=== PATIENT | male | born 1935 | race Caucasian/White ===

== ENCOUNTER 2018-03-05 04:01 | Emergency (ER) | payer MEDICARE ==
[~2018-03-05] VITALS: Ht 167.6 cm; Wt 112.1 kg
[~2018-03-05 04:01] MED LIST: ALBU2TAB4 PO; ALLO100T PO; ASPI-516 CHEW; ATOR40TA16 PO; COLC1CAP3 PO; FURO40TA PO; GABA300C5 PO; IPRA0.02 NEB; KLOR10TA PO; LEVO100T5 PO; LEVO50TA4 PO; LISI10TA3 PO; METF500T PO; OCUVTAB PO; PACE200T PO; TEST200I12 IM; TRAM50TA PO; TYLE325T PO; VITA1000 PO
[2018-03-05 04:06] VITALS: BP 171/90; PULSE 60; RESP 20; TEMP 98.4; O2SAT 93
[2018-03-05] MEDS ORDERED: SODIUM CHLOR 0.9% 1000 ML INJ 1,000 ML IV SCH (04:28)
[2018-03-05] MEDS ORDERED: SODIUM CHLORIDE 0.9% FLUSH 10 ML FLUSH IV FLUSH PRN (04:30)
[2018-03-05] MEDS ORDERED: ONDANSETRON HCL 4 MG/2 ML VIAL IVP ONE (04:30)
[2018-03-05] MEDS ORDERED: MORPHINE SULFATE 4 MG/ML INJ IV PUSH ONE (04:30)
[2018-03-05 04:47] VITALS: RESP 18; O2SAT 92; O2SAT 94
[2018-03-05 04:51] LABS: AUTOMATED NEUTROPHIL # 4.3 TH/MM3 (1.8-7.7); BASOPHIL # 0.1 TH/MM3 (0-0.2); BASOPHIL % 1.2 % (0.0-2.0); EOSINOPHIL # 0.5 TH/MM3 (0-0.4); EOSINOPHIL % 7.5 % (0.0-4.0); HEMOGLOBIN 13.8 GM/DL (13.0-17.0); LYMPH % 17.5 % (9.0-44.0); LYMPHOCYTE # 1.2 TH/MM3 (1.0-4.8); MEAN CELL VOLUME 110.1 FL (80.0-100.0); MEAN CORPUSCULAR HEMOGLOBIN 36.1 PG (27.0-34.0); MEAN CORPUSCULAR HGB CONC 32.8 % (32.0-36.0); MEAN PLATELET VOLUME 7.9 FL (7.0-11.0); MONO % 8.8 % (0.0-8.0); MONOCYTE # 0.6 TH/MM3 (0-0.9); PLATELET COUNT 167 TH/MM3 (150-450); RED BLOOD COUNT 3.81 MIL/MM3 (4.50-5.90); WHITE BLOOD COUNT 6.7 TH/MM3 (4.0-11.0)
[2018-03-05 04:58] LABS: CHLORIDE 105 MEQ/L (98-107); SODIUM (NA) 141 MEQ/L (136-145)
[2018-03-05 05:02] LABS: ALBUMIN 3.5 GM/DL (3.4-5.0); BICARBONATE 28.4 MEQ/L (21.0-32.0); CALCIUM 9.5 MG/DL (8.5-10.1); GLUCOSE,RANDOM 125 MG/DL (74-106)
[2018-03-05 05:03] LABS: BLOOD UREA NITROGEN 20 MG/DL (7-18)
[2018-03-05 05:05] LABS: ALT (GPT) 23 U/L (12-78); AST (GOT) 25 U/L (15-37); GLOMERULAR FILTRATION RATE 53 ML/MIN (>89)
[2018-03-05 05:07] LABS: TOTAL BILIRUBIN ADULT 0.5 MG/DL (0.2-1.0); TOTAL PROTEIN 6.7 GM/DL (6.4-8.2)
[2018-03-05 05:08] LABS: ALKALINE PHOSPHATASE 91 U/L (45-117)
--- NOTE | 2018-03-05 05:19 | PD ---
HPI Chief Complaint: Abdominal Pain Time Seen by Provider: 04:17 Travel History International Travel<30 days: No Contact w/Intl Traveler<30days: No Traveled to known affect area: No History of Present Illness HPI The patient is an 82-year-old male who comes into the emergency department because of abdominal pain and distention for 2 hours. He does have nausea without vomiting. He states he has not had a bowel movement in 24 hours and his past only a small amount of gas. He denies any fever or diarrhea. He does have a history of atrial fibrillation. The patient has renal insufficiency and cannot take nonsteroidal anti-inflammatory drugs. PFSH Past Medical History Arthritis: Yes Asthma: No Atrial Fibrillation: Yes Autoimmune Disease: No Anxiety: No Depression: No Heart Rhythm Problems: Yes (A-FIB) Cancer: No Cardiovascular Problems: Yes (HTN, high chol, bypass) High Cholesterol: Yes Chemotherapy: No Chest Pain: No Congestive Heart Failure: Yes COPD: Yes Cerebrovascular Accident: Yes (TIA) Diabetes: Yes Patient Takes Glucophage: Yes (03/04/18 0900) Diminished Hearing: Yes Endocrine: No GERD: No Glaucoma: No Genitourinary: Yes (PROSTATE ISSUES; ) Headaches: Yes Hepatitis: No Hiatal Hernia: No Hypertension: Yes Immune Disorder: No Kidney Stones: No Medical other: Yes (HX DIVERTICULTIS; SWELLING IN FEET; GOUT ) Musculoskeletal: Yes (NECK STIFFNESS; bryon rotator cuff issues) Neurologic: No Psychiatric: No Reproductive: No Respiratory: Yes (COPD) Immunizations Current: No Migraines: No Radiation Therapy: No Renal Failure: No Seizures: No Sickle Cell Disease: No Sleep Apnea: No Thyroid Disease: Yes Ulcer: No Tetanus Vaccination: Unknown Influenza Vaccination: Yes PNEUMOCCOCAL Vaccine (Year): 1 Past Surgical History Abdominal Surgery: Yes (COLON RESECTION,UMBILICAL HERNIA REPAIR WITH MESH ) AICD: No Arteriovenous Shunt: No Body Medical Devices: mesh, UMBILICAL AREA Cardiac Surgery: Yes (bypass) Ear Surgery: No Endocrine Surgery: No Eye Surgery: Yes (RIGHT CATARACT EXTRACTION WITH LENS IMPLANT) Genitourinary Surgery: Yes (CIRCUMISION) Gynecologic Surgery: No Insulin Pump: No Joint Replacement: No Oral Surgery: No Pacemaker: No Thoracic Surgery: No Other Surgery: Yes Social History Alcohol Use: Yes ([facility]) Tobacco Use: No (QUIT 1984) Substance Use: No Allergies-Medications (Allergen,Severity, Reaction): Coded Allergies: ibuprofen (Verified Allergy, Severe, kidney reaction, 10/02/17) lovastatin (Verified Allergy, Unknown, 10/02/17) muscle weakness pravastatin (Verified Allergy, Unknown, 10/02/17) muscle weakness Reported Meds & Prescriptions Reported Meds & Active Scripts Active Testosterone Cypionate Inj (Testosterone Cypionate) 200 Mg/Ml Inj 100 Mg IM MO Reported Furosemide 40 Mg Tab 40 Mg PO DAILY Gabapentin 300 Mg Cap 300 Mg PO HS Klor-Con 10 (Potassium Chloride) 10 Meq Tab 10 Meq PO DAILY Lisinopril 10 Mg Tab 10 Mg PO DAILY Metformin (Metformin HCl) 500 Mg Tab 500 Mg PO DAILY With a meal Albuterol (Albuterol Sulfate) 2 Mg Tab 2 Mg PO QID Ipratropium Neb (Ipratropium [place]) 0.5 Mg/2.5 Ml Amp 0.5 Mg NEB Q6HR NEB PRN Ocuvite (Multiple Vitamins W/ Minerals) 1 Tab 1 Tab PO DAILY Vitamin D-1000 (Cholecalciferol) 1,000 Unit Tab 1,000 Units PO DAILY Tylenol (Acetaminophen) 325 Mg Tab 650 Mg PO Q4H PRN Pacerone (Amiodarone HCl) 200 Mg Tab 200 Mg PO DAILY Levothyroxine (Levothyroxine Sodium) 100 Mcg Tab 100 Mcg PO DAILY Fri, Fri. Levothyroxine (Levothyroxine Sodium) 50 Mcg Tab 50 Mcg PO DAILY Mon,T,T,Fri,Sat Colchicine 0.6 Mg Cap 0.6 Mg PO DAILY Atorvastatin (Atorvastatin Calcium) 40 Mg Tab 80 Mg PO HS Allopurinol 100 Mg Tab 300 Mg PO DAILY Review of Systems Except as stated in HPI: all other systems reviewed are Neg Physical Exam Narrative The CBC is essentially normal. The complete metabolic profile shows a BUN of 20 , GFR 53 but is otherwise normal. The lipase is normal. The CT abdomen/pelvis with IV contrast shows cholelithiasis and distended gallbladder without pericholecystic inflammatory changes. Multiple fat-containing anterior abdominal wall hernias in the midline are noted. Prominent left-sided spur galea and hernia containing a loop of bowel but no evidence of bowel dilatation or bowel wall thickening. Also noted is enlarged prostate. Data Data Last Documented VS Vital Signs Date Time Temp Pulse Resp B/P (MAP) Pulse Ox O2 Delivery O2 Flow Rate FiO2 03/05/18 05:45 18 03/05/18 05:44 88 131/83 (99) 96 Nasal Cannula 2.00 03/05/18 04:06 98.4 Orders Orders Complete Blood Count With Diff (03/05/18 04:28) Comprehensive Metabolic Panel (03/05/18 04:28) Lipase (03/05/18 04:28) Urinalysis - C+S If Indicated (03/05/18 04:28) Ct Abd/Pel W Iv Contrast(Rout) (03/05/18 04:28) Iv Access Insert/Monitor (03/05/18 04:28) Ecg Monitoring (03/05/18 04:28) Oximetry (03/05/18 04:28) Morphine Inj (Morphine Inj) (03/05/18 04:30) Ondansetron Inj (Zofran Inj) (03/05/18 04:30) Sodium Chlor 0.9% 1000 Ml Inj (Ns 1000 M (03/05/18 04:28) Sodium Chloride 0.9% Flush (Ns Flush) (03/05/18 04:30) Electrocardiogram (03/05/18 05:14) Iohexol 350 Inj (Omnipaque 350 Inj) (03/05/18 05:38) Labs Laboratory Tests Test 03/05/18 04:40 03/05/18 05:50 White Blood Count 6.7 TH/MM3 Red Blood Count 3.81 MIL/MM3 Hemoglobin 13.8 GM/DL Hematocrit 42.0 % Mean Corpuscular Volume 110.1 FL Mean Corpuscular Hemoglobin 36.1 PG Mean Corpuscular Hemoglobin Concent 32.8 % Red Cell Distribution Width 16.0 % Platelet Count 167 TH/MM3 Mean Platelet Volume 7.9 FL Neutrophils (%) (Auto) 65.0 % Lymphocytes (%) (Auto) 17.5 % Monocytes (%) (Auto) 8.8 % Eosinophils (%) (Auto) 7.5 % Basophils (%) (Auto) 1.2 % Neutrophils # (Auto) 4.3 TH/MM3 Lymphocytes # (Auto) 1.2 TH/MM3 Monocytes # (Auto) 0.6 TH/MM3 Eosinophils # (Auto) 0.5 TH/MM3 Basophils # (Auto) 0.1 TH/MM3 CBC Comment DIFF FINAL Differential Comment Blood Urea Nitrogen 20 MG/DL Creatinine 1.30 MG/DL Random Glucose 125 MG/DL Total Protein 6.7 GM/DL Albumin 3.5 GM/DL Calcium Level 9.5 MG/DL Alkaline Phosphatase 91 U/L Aspartate Amino Transf (AST/SGOT) 25 U/L Alanine Aminotransferase (ALT/SGPT) 23 U/L Total Bilirubin 0.5 MG/DL Sodium Level 141 MEQ/L Potassium Level 4.1 MEQ/L Chloride Level 105 MEQ/L Carbon Dioxide Level 28.4 MEQ/L Anion Gap 8 MEQ/L Estimat Glomerular Filtration Rate 53 ML/MIN Lipase 168 U/L [facility] Medical Decision Making Medical Screen Exam Complete: Yes Emergency Medical Condition: Yes Medical Record Reviewed: Yes Interpretation(s) The EKG shows atrial fibrillation with a response rate of 85. The CBC is normal. The complete metabolic profile shows a BUN of 20, GFR 53 but is otherwise normal. The lipase is normal. The CT abdomen/pelvis with IV contrast shows cholelithiasis and distended gallbladder but no pericholecystic inflammatory changes seen and multiple fat-containing anterior abdominal wall hernias and midline. There is also prominent left-sided spitting galea and hernia containing a loop of bowel. No evidence of bowel dilatation or bowel wall thickening. Also noted is an enlarged prostate. Differential Diagnosis Small bowel obstruction, cholecystitis, cholelithiasis with colic, pancreatitis , dehydration, electrolyte disorder Narrative Course The patient has cholelithiasis with colic. It is now 0 615 and the patient feels normal without any pain or nausea. He will need to follow-up with Dr. Aryan donnelly regarding this. He will be given Percocet 5 for pain and Zofran for nausea. Diagnosis Primary Impression: Cholelithiasis with colic Additional Instructions: Follow-up with Dr. Donnelly as soon as possible. Take the results of the CAT scan and blood work that I gave you to his office. Do not drink alcohol or drive on the Percocet 5. Med/Other Pt SpecificInfo: Prescription(s) given Scripts Ondansetron (Zofran) 4 Mg Tab 4 MG PO Q6HR Y for NAUSEA OR VOMITING, #20 TAB 0 Refills Prov: Winston Robbins MD 03/05/18 Oxycodone-Acetaminophen (Percocet) 5-325 mg Tab 1-2 TAB PO Q4H Y for PAIN, #20 TAB 0 Refills Prov: Winston Robbins MD 03/05/18 Disposition: 01 DISCHARGE HOME Condition: Stable Winston Robbins MD Mar 05, 2018 05:19
[2018-03-05] MEDS ORDERED: IOHEXOL 350 MG/ML 10 ML VIAL (for RAD DIAG) IVCONTRAST ONE (05:38)
[2018-03-05 05:44] VITALS: BP 131/83; PULSE 88; RESP 18; O2SAT 96
[2018-03-05 05:45] VITALS: RESP 18
--- NOTE | 2018-03-05 06:00 | RADRPT ---
EXAM DATE: 03/05/2018 5:39 AM EDT AGE/SEX: 82 years / Male INDICATIONS: Abdominal and back pain. CLINICAL DATA: This is the patient's initial encounter. Patient reports that signs and symptoms have been present for 1 day and indicates a pain score of 7/10. MEDICAL/SURGICAL HISTORY: Diverticulitis. Diabetes mellitus type II. Hypertension. Umbilical hernia. Umbilical hernia repair. Colon resection. ORAL CONTRAST: No oral contrast ingested. RADIATION DOSE: 26.70 CTDI (mGy) ; Patient body habitus COMPARISON: No prior exams available for comparison. TECHNIQUE: Multiple contiguous axial images were obtained through the abdomen and pelvis following b olus infusion of 100 ml Omnipaque 350 (iohexol) nonionic water-soluble contrast as a single exam do se. No oral contrast ingested. Using automated exposure control and adjustment of the mA and/or kV a ccording to patient size, the radiation dose was kept as low as reasonably achievable to obtain optim al diagnostic quality images. FINDINGS: Lower Lungs: Mild bilateral lower lobe atelectasis. Coronary artery calcifications noted. Liver: The liver has a homogeneous density without space-occupying lesion. There is no dilation of th e biliary tree. Gallbladder is distended. Several small calcified gallstones are seen in the dependen t portion of the gallbladder. No pericholecystic inflammatory changes. Spleen: Homogeneous density without enlargement. Pancreas: Unremarkable without mass or calcification. Kidneys: 2.7 cm cyst in the midpole of the right kidney. 2.6 cm cyst at the medial aspect of the mid pole the right kidney. 1 cm cyst in the posterior upper pole of the left kidney. No evidence of hydro nephrosis. Adrenal Glands: Unremarkable. Aorta: Tortuous and calcified aorta. Aortic diameter within normal limits. Bowel/Mesentery: Scattered colonic diverticula. No evidence of acute diverticulitis. Appendix within normal limits. No evidence of bowel dilatation. Surgical clips in the left upper quadrant of the abd omen. Abdominal Wall: Multiple fat-containing anterior abdominal wall hernias in the midline. No bowel inv olvement is seen. Largest measures 4.2 x 1.6 cm. Prominent left-sided spigelian hernia containing a l oop of small bowel. No evidence of bowel wall thickening or dilatation. Retroperitoneum: No evidence of adenopathy in the retrocrural, para-aortic, or deep pelvic regions. Bladder: Contours are smooth. Reproductive Organs: Prostate calcification. Prostate is enlarged measuring 5.1 cm in transverse dim ension. Inguinal: Bony Structures: Degenerative findings of the lumbar spine. Mild osteoarthritic findings of the hips . CONCLUSION: 1. Cholelithiasis and distended gallbladder. No pericholecystic inflammatory changes seen. 2. Multiple fat-containing anterior abdominal wall hernias in the midline. 3. Prominent left-sided spigelian hernia containing a loop of bowel. No evidence of bowel dilatation or bowel wall thickening. 4. Enlarged prostate. Electronically signed by: Raul Da Silva MD 03/05/2018 5:58 AM EDT
[2018-03-05 06:01] LABS: BILIRUBIN, URINE NEG (NEG); BLOOD, URINE NEG (NEG); GLUCOSE,URINE NEG (NEG); KETONE, URINE NEG (NEG); NITRITE,URINE NEG (NEG); URINE COLOR YELLOW (YELLW/STRAW); URINE LEUKOCYTE ESTERASE NEG (NEG)
[2018-03-05 06:16] LABS: WBC, URINE 0-2 /hpf (0-5)
[2018-03-05 06:17] LABS: SQUAMOUS EPITHELIAL CELL URINE 0-5 /hpf (0-5)
[2018-03-05] MEDS ORDERED: PERC5TAB12 PO (06:17)
[2018-03-05] MEDS ORDERED: ZOFR4TAB PO (06:17)
--- NOTE | 2018-03-05 18:20 | EKG ---
Date Performed: 03/05/2018 Time Performed: 05:12:50 PTAGE: 82 years EKG: ATRIAL FIBRILLATION LOW QRS VOLTAGE POSSIBLE ANTERIOR MYOCARDIAL INFARCTION ABNORMAL ECG Si nce PREVIOUS TRACING ,Ptient appears to now be in atrial fibrillation PREVIOUS TRACIN01/05 05.28 DOCTOR: Ching Diaz Interpretating Date/Time 03/05/2018 18:18:30
== END 2018-03-05 06:39 | disposition home or self-care (01) ==
LOC: PHED 04:01
DX: K80.20 Calculus of gallbladder without cholecystitis without obstruction (principal); R94.31 Abnormal electrocardiogram [ECG] [EKG]; I48.91 Unspecified atrial fibrillation; E78.00 Pure hypercholesterolemia, unspecified; E11.9 Type 2 diabetes mellitus without complications; I11.0 Hypertensive heart disease with heart failure; I50.9 Heart failure, unspecified; J44.9 Chronic obstructive pulmonary disease, unspecified; N28.9 Disorder of kidney and ureter, unspecified; E07.9 Disorder of thyroid, unspecified; Z86.73 Personal history of transient ischemic attack (TIA), and cerebral infarction without residual deficits; Z87.891 Personal history of nicotine dependence
CPT/HCPCS: 74177; 80053; 81001; 83690; 85025; 93005; 96361; 96374; 96375; 99285; J2270; J2405; J7030; Q9967

== ENCOUNTER → 2018-03-16 | Outpatient (CLI) | payer MEDICARE ==
[~2018-03-16] MED LIST changes: -ASPI-516 CHEW; +PERC5TAB12 PO; -TRAM50TA PO; +ZOFR4TAB PO
--- NOTE | 2018-03-18 09:20 | RSPPFT ---
DATE OF PROCEDURE: 03/16/18 COMMENTS: Spirometry with FVC of 2.0 predicted 2.8, FEV1 of 1.6 predicted 2.2, FEV1/FVC ratio 81% predicted 77%. Post-bronchodilator FVC increases to 2.3. Air trapping is present with RV/TLC ratio and airways resistance increased. DLCO is 47% of predicted. IMPRESSION: On the basis of the above, patient has an obstructive lung defect with air trapping, decreased DLCO and some response to acutely inhaled bronchodilator.
== END ==
LOC: HRSP 12:31
PROVIDERS: ATTEND Internal Medicine Pulmonary Disease
DX: J44.9 Chronic obstructive pulmonary disease, unspecified (principal)
CPT/HCPCS: 94060; 94618; 94726; 94729